=== PATIENT | female | born 1955 | race Caucasian/White ===

== ENCOUNTER 2018-07-20 15:41 | Emergency (ER) | payer OTHER ==
[~2018-07-20] VITALS: Ht 165.1 cm; Wt 70.5 kg
[2018-07-20 15:52] VITALS: Ht 165.1 cm; Wt 70.5 kg
[2018-07-20] MEDS ORDERED: ULTRAM50 MG PO (15:55)
[2018-07-20] MEDS ORDERED: TYLENOL W/CODEI1 TAB PO (18:22)
[2018-07-20 19:00] VITALS: BP 132/84
== END 2018-07-20 19:08 | disposition home or self-care (01) ==
LOC: D.ER 15:41
DX: S52.611A Displaced fracture of right ulna styloid process, initial encounter for closed fracture (principal); W18.30XA Fall on same level, unspecified, initial encounter; Y93.89 Activity, other specified; Y92.019 Unspecified place in single-family (private) house as the place of occurrence of the external cause